=== PATIENT | female | born 1985 | race Caucasian/White ===

== ENCOUNTER 2017-08-17 19:52 | Emergency (ER) | payer OTHER ==
[2017-08-17] MEDS ORDERED: Dexamethasone 4 mg/ml Vial ONE (21:48)
[2017-08-17] MEDS ORDERED: Metoclopramide HCl 10 MG/2 ML VIAL ONE (21:48)
[2017-08-17] MEDS ORDERED: Fentanyl 100 MCG/2 ML VIAL ONE (21:48)
== END 2017-08-17 22:58 | disposition home or self-care (01) ==
LOC: ERS 19:52
DX: G43.909 Migraine, unspecified, not intractable, without status migrainosus (principal); F31.9 Bipolar disorder, unspecified; F17.210 Nicotine dependence, cigarettes, uncomplicated; Z79.899 Other long term (current) drug therapy
CPT/HCPCS: 96374; 96375; 99283; J1100; J2765; J3010

== ENCOUNTER 2018-03-05 15:38 | Emergency (ER) | payer OTHER ==
--- NOTE | 2018-03-05 16:55 | ULT ---
PELVIC ULTRASOUND WITH DOPPLER (Transabdominal, transvaginal, cardenas scale, color flow and spectral doppler) 03/05/18 HISTORY: Pelvic pain. FINDINGS: The uterus measures 6.6 x 2.8 x 4.1 cm without focal mass or endometrial fluid. The endometrium measu res 1 cm in thickness. The right ovary measures 2.8 x 1.4 x 1.2 cm and the left ovary measures 3.7 x 4.1 x 2.6 cm. There is a 2 cm cyst in the left ovary. Flow is demonstrated to both ovaries. There is free fluid in the cul-de-sac. IMPRESSION: 1. No evidence of intrauterine gestation. 2. 2 cm left ovarian cyst and free fluid in the cul-de-sac. 3. Correlation with serial serum beta HCG levels and followup ultrasound is recommended. POS: [facility]
== END 2018-03-05 17:19 | disposition home or self-care (01) ==
LOC: ERS 15:38
DX: R10.30 Lower abdominal pain, unspecified (principal); G43.909 Migraine, unspecified, not intractable, without status migrainosus; F31.9 Bipolar disorder, unspecified; F17.210 Nicotine dependence, cigarettes, uncomplicated
CPT/HCPCS: 76856; 99406